=== PATIENT | male | born 1945 | race Caucasian/White ===

== ENCOUNTER 2019-01-16 11:03 | Day surgery (SDC) | payer OTHER ==
[~2019-01-16] VITALS: Ht 182.9 cm; Wt 89.4 kg
[2019-01-16 11:54] LABS: HEMATOCRIT 37.9 % (42.0-54.0); HEMOGLOBIN 13.6 g/dL (13.5-17.5); MCH 29.9 pg (26.0-34.0); MCHC 35.9 g/dL (31.0-37.0); MCV 83.3 fL (80.0-100.0); MEAN PLATELET VOLUME 8.6 fL (7.4-10.4); RBC 4.55 10x6/uL (4.20-6.10); RDW 13.2 % (11.5-14.5); WBC 6.1 10x3/uL (4.8-10.8)
[2019-01-16] MEDS ORDERED: OMEPRAZOLE40 MG PO (14:31)
[2019-01-16] MEDS ORDERED: HYDROCODON-ACE1 EAC7 PO (14:32)
[2019-01-16] MEDS ORDERED: LEVO-T25 MCG PO (14:32)
[2019-01-16] MEDS ORDERED: FISH OIL 1,0001 CA1 PO (14:33)
[2019-01-16] MEDS ORDERED: CELEXA40 MG PO (14:33)
[2019-01-16] MEDS ORDERED: COZAAR50 MG (14:33)
[2019-01-16 15:03] VITALS: BP 173/96; Ht 182.9 cm; Wt 89.4 kg
[2019-01-16] MEDS ORDERED: DURICEF500 MG PO (18:49)
[2019-01-16] MEDS ORDERED: PERCOCET 5-3251 TAB PO (18:50)
--- NOTE | 2019-01-16 20:04 | NUR ---
2000 B/P ELEVATED DENIES PAIN TO RIGHT HAND. PT TOOK B/P MEDS FROM HOME.
--- NOTE | 2019-01-17 07:56 | OP ---
PATIENT NAME: JAZMYNE ALVAREZ MEDICAL RECORD: [id number] :49 LOCATION:[facility] ADMISSION DATE: SURGEON: TERELL MONTOYA DO DATE OF OPERATION: 01/16/2019 PROCEDURE PERFORMED: Right distal radius open reduction and internal fixation. PREOPERATIVE DIAGNOSIS: Right intra-articular distal radius fracture, displaced. POSTOPERATIVE DIAGNOSIS: Right intra-articular distal radius fracture, displaced. INDICATIONS: Mr. Alvarez is a 73-year-old male who fell off a ladder yesterday, fracturing his distal radius. He was seen at his primary care's office and sent right to me. In my office, I saw him and saw that he had an intra-articular displaced distal radius fracture and informed he will need this fixed. He was okay with that and was aware of the risks including damage to nerves and vessels, infection, bleeding, malunion, nonunion, and need for further surgery. He signed the consent. SURGEON: Terell Montoya DO DESCRIPTION OF THE PROCEDURE: The patient received a block by anesthesia preoperatively. He was given 2 grams of Ancef preoperatively. He was taken to the operative suite and laid in the supine position. The right upper extremity was prepped and draped in sterile fashion. Tourniquet was placed on the upper arm prior to draping. Time-out was performed and everyone was in agreement with correct side, site, patient, and procedure. An Esmarch was then used to exsanguinate the right upper extremity and the tourniquet was inflated to 250 mmHg, was up for 71 minutes. The incision was then began over the flexor carpi radialis tendon in a curvilinear fashion. Dissection was made down through the flexor carpi radialis and through the tendon sheath, both the dorsal and palmar aspects. The pronator quadratus was cleaned off the radius. Once this was cleaned off, the fracture was seen; and once reduction was made using a Kapandji technique, a plate was put on. The plate was in good position. I first used screws distally, locking screws, and then locking compression screws. In the radial styloid, we used variable angle screw to get into the radial styloid. I then moved to the shaft and put 3 shaft screws in, 2 compression and 1 locking. Once it was in adequate position on x-ray, the tourniquet was let down at 71 minutes. Bleeding was approximately 100 mL. Complications were none. The site was irrigated and then closed with 3-0 Vicryl in inverted interrupted fashion and Prineo was put on the skin. He was then placed in a 3 x 12 volar splint after being dressed with Adaptic, 4 x 4s, and cast padding. The splint was placed, secured, and held into place with Tristan wrap. He was then awakened and taken to recovery in stable condition. BLOOD LOSS: Approximately 100 mL. COMPLICATIONS: None. TRANSINT:[id number] Voice Confirmation ID: [id number] DOCUMENT ID: [id number] OPERATIVE REPORT [id number] JAZMYNE ALVAREZ MICHAEL D, DO at 0756 CC: [id number] DICTATION DATE: 01/16/191852 ODD JOB WORKER: 01/16/19 2215 [facility] 01/16/19 [facility] [address] [place] [address]
== END 2019-01-16 20:45 | disposition home or self-care (01) ==
LOC: D.OPS 11:03
PROVIDERS: Anesthesiology; ATTEND Orthopaedic Surgery
DX: S52.571A Other intraarticular fracture of lower end of right radius, initial encounter for closed fracture (principal); W11.XXXA Fall on and from ladder, initial encounter; Z01.812 Encounter for preprocedural laboratory examination